=== PATIENT | female | born 1950 | race Two or more races ===

== ENCOUNTER 2017-06-22 09:17 | Outpatient (CLI) | payer OTHER ==
[~2017-06-22 09:17] MED LIST: DIOVAN HCT 160-1 TAB; SINGULAIR10 MG PO; ZANTAC25 MG/1 ML PO; [UNRECOGNIZED DRUG - OTHER] PO
== END 2017-06-22 09:28 | disposition home or self-care (01) ==
LOC: MAMO-SONO 09:17
DX: Z12.31 Encounter for screening mammogram for malignant neoplasm of breast (principal); Z87.898 Personal history of other specified conditions; N60.11 Diffuse cystic mastopathy of right breast; N60.12 Diffuse cystic mastopathy of left breast

== ENCOUNTER 2017-12-01 09:28 | Outpatient (CLI) | payer OTHER | END 2017-12-01 09:36 | disposition home or self-care (01) | LOC: RAD 09:28 | DX: M25.511 Pain in right shoulder (principal) ==

== ENCOUNTER 2018-08-23 09:41 | Outpatient (CLI) | payer OTHER | END 2018-08-23 09:53 | disposition home or self-care (01) | LOC: MAMO-SONO 09:41 | DX: Z12.31 Encounter for screening mammogram for malignant neoplasm of breast (principal); Z87.898 Personal history of other specified conditions; N60.11 Diffuse cystic mastopathy of right breast; N60.12 Diffuse cystic mastopathy of left breast ==

== ENCOUNTER 2018-08-30 13:33 | Outpatient (CLI) | payer OTHER | END 2018-08-30 13:36 | disposition home or self-care (01) | LOC: NUCLEAR 13:33 | DX: M81.0 Age-related osteoporosis without current pathological fracture (principal) ==

== ENCOUNTER 2021-12-10 08:53 | Day surgery (SDC) | payer OTHER | END 2021-12-10 13:55 | disposition home or self-care (01) | LOC: AMB-ENDOS 08:53 → CIR.AMB 14:00 | PROVIDERS: ATTEND Colon & Rectal Surgery | DX: K62.5 Hemorrhage of anus and rectum (principal); Z53.09 Procedure and treatment not carried out because of other contraindication ==